=== PATIENT | female | born 1975 | race Caucasian/White ===

== ENCOUNTER 2016-06-28 19:16 | Emergency (ER) | payer OTHER ==
[~2016-06-28] VITALS: Ht 162.6 cm; Wt 54.0 kg
[2016-06-28 19:34] VITALS: Ht 162.6 cm; Wt 54.0 kg
[2016-06-28 20:53] LABS: URINE BLOOD (Dip) POC 2+ (NEGATIVE)
--- NOTE | 2016-06-28 22:30 | RADRPT ---
PROCEDURE: US Pelvis. CLINICAL INDICATION: Pelvic pain TECHNIQUE: Multiple sonographic images of the pelvis were obtained utilizing a transabdominal and endovaginal technique. The images were reviewed on a PACS workstation. COMPARISON: None. FINDINGS: The uterus is visualized and measures 11 x 7.2 x 8.4 cm in size. A hypoechoic mass in the fundus is seen measuring 6.4 x 5.2 x 5.3 cm in size and is consistent with a leiomyoma. The endometrial echo c omplex is mildly thickened and measures 12.9 mm. There is a mild amount of free fluid. A right ovari an simple cystic structure is seen measuring 1.6 x 1.4 x 1.7 cm in size and is consistent with a dom inant follicle. The remainder of the right ovary has a normal echotexture and measures 3.5 x 1.9 x 2 .4 cm. The left ovary is not visualized.. No adnexal masses are noted. IMPRESSION: 1. Large fundal mass consistent with a leiomyoma. 2. Small amount of free fluid in the pelvis with a mildly thickened endometrial lining which may be physiologic. RPTAT: HPNM Physician Vielka Date Time Electronically viewed and signed by Physician Vielka on 06/28/2016 22:29 /
[2016-06-28] MEDS ORDERED: IBUP-1542 PO (22:51)
--- NOTE | 2016-06-28 22:58 | ERD ---
ER Documentation Chief Complaint Date/Time DATE: 06/28/16 TIME: 22:53 Chief Complaint lower abd pain/frequent urination x 2 weeks HPI 40-year-old female complaining of suprapubic pain 2 weeks. Pain comes and goes , and sharp. Patient also reports frequent urination for the past 2 weeks, but denies dysuria. LMP 06/14/2016. Denies fever or chills. Denies flank pain. ROS All systems reviewed and are negative except as per history of present illness. Medications Home Meds Active Scripts Ibuprofen* (Motrin*) 600 Mg Tab, 600 MG PO Q6H Y for PAIN AND OR ELEVATED TEMP, #30 TAB Prov:ASHOK JORDAN. MARKETING ROTATION ASSOCIATE 06/28/16 Allergies Allergies: Coded Allergies: No Known Drug Allergies (Verified Allergy, Unknown, 06/28/16) PMhx/Soc Medical and Surgical Hx: pt denies Medical Hx, pt denies Surgical Hx Hx Alcohol Use: No Hx Substance Use: No Hx Tobacco Use: No Smoking Status: Never smoker Physical Exam Vitals Vital Signs Date Time Temp Pulse Resp B/P Pulse Ox O2 Delivery O2 Flow Rate FiO2 06/28/16 19:34 98.3 80 20 127/74 99 Physical Exam General impression: Well-developed, well-nourished. Alert, oriented, in no acute distress Head: Normocephalic, atraumatic. Eyes: PERRL, EOM normal. Conjunctiva not injected. Respiration: Normal respiratory effort. Lungs clear to auscultate bilaterally. No wheezes, rales or rhonchi. Cardiovascular: Regular rate and rhythm. No murmurs or extra heart sounds. Abdomen: Abdomen normal to inspection. Suprapubic tenderness, no other tenderness. No masses or organomegaly. Bowel sounds normal. Back: Normal to inspection. No midline spine tenderness. No CVA tenderness. Neuro: Mental status normal, speech normal. FINANCIAL COACH grossly intact. Skin: Normal turgor. No rash or lesions. Psych: Normal mood and affect. Results 24 hrs Laboratory Tests Test 06/28/16 20:55 Bedside Urine Blood 2+ Bedside Urine Glucose (UA) Negative Bedside Urine Ketones (LAB) Negative Bedside Urine Leukocyte Esterase (L Negative Bedside Urine Nitrite (LAB) Negative Bedside Urine Protein (LAB) Negative Bedside Urine pH (LAB) 6.0 Current Medications Medications (Trade) Dose Ordered Sig/Dawn Route PRN Reason Start Time Stop Time Status Last Admin Dose Admin Ibuprofen (Motrin) 600 mg ONCE ONCE PO 06/28/16 23:00 06/28/16 23:01 Procedures/MDM Well-appearing 40-year-old female presented to ED with suprapubic pain 2 weeks. Ibuprofen given to the patient in the ED for pain. Urine is negative. Urine dip has 2+ blood, otherwise negative. She does not have UTI. Pelvic ultrasound showed a large fundal mass consistent with a leiomyoma measuring 6.4 x 5.2 x 5.3 cm in size. Likely this is the cause of her pain. Patient appears well, stable for discharge and outpatient management. Medical decision making shared with patient and family. Education provided to patient and family. Patient and family expressed understanding of the plan. Medications on discharge: Ibuprofen. Follow-up: Motion Picture Actor or primary care provider in 2-3 days or return to ED if worse. Departure Diagnosis: Primary Impression: Fibroid, uterine Uterine leiomyoma location: intramural Qualified Code: D25.1 - Intramural leiomyoma of uterus Condition: Stable Patient Instructions: What Are Fibroids? Referrals: [facility] YOU HAVE RECEIVED A MEDICAL SCREENING EXAM AND THE RESULTS INDICATE THAT YOU DO NOT HAVE A CONDITION THAT REQUIRES URGENT TREATMENT IN THE EMERGENCY DEPARTMENT. FURTHER EVALUATION AND TREATMENT OF YOUR CONDITION CAN WAIT UNTIL YOU ARE SEEN IN YOUR DOCTORS OFFICE WITHIN THE NEXT 1-2 DAYS. IT IS YOUR RESPONSIBILITY TO MAKE AN APPOINTMENT FOR FOLOW-UP CARE. IF YOU HAVE A PRIMARY DOCTOR --you should call your primary doctor and schedule an appointment IF YOU DO NOT HAVE A PRIMARY DOCTOR YOU CAN CALL OUR PHYSICIAN REFERRAL HOTLINE AT IF YOU CAN NOT AFFORD TO SEE A PHYSICIAN YOU CAN CHOSE FROM THE FOLLOWING [facility] [address] [facility]. [facility] [address] [facility]. [facility] [address] [facility]. [facility] [address] [facility]. [facility] [address] [facility]. [facility]. [address] [place] [employer] DEPOSIT ENTRY [place] [address] [facility] [address] [place] [address] OFFICE FAX [facility] [place] [address] [place] [address] [address]. RAZA, [place] [address] [place] [address] DR KIDD, [facility] [address], [address], [facility] [address] [address] [facility] [address] [place] [address] [facility] [address] [place] [address] [address] [facility] [address] [address] HOOD, MELISSA [address] [place] [address] [address]LEA, [place] [address] [facility]. [address], [place] [address] [address] CALDERON, [facility] [address] [place] [address] Additional Instructions: Specialist:Usted tiene lyubov condicin mdica que requiere que joshua a un especialista dentro de los prximos 1-2 reyes.POR FAVOR,CON ACUNA SEGUIMIENTO DE PRIMARIA PHSICIAN refferal. SI USTED NO TIENE UN MDICO GENERAL Y / O USTED NO PUEDE PAGAR keerthi a un mdico,los siguientes parsons RECURSOS sido suministrado a usted. ES ACUNA RESPONSABILIDAD PARA SER VISTOS POR EL ESPECIALISTA: ASHOK JORDAN NP Jun 28, 2016 22:58
[2016-06-28] MEDS ORDERED: IBUPROFEN 600 MG TAB PO ONE (23:00)
[2016-06-28 23:51] VITALS: BP 123/74; PULSE 82; RESP 16; TEMP 98.6
== END 2016-06-28 23:56 | disposition home or self-care (01) ==
LOC: FTE 19:16
DX: D25.1 Intramural leiomyoma of uterus (principal); R10.2 Pelvic and perineal pain
CPT/HCPCS: 76830; 76856; 81003; Z7502; Z7610

== ENCOUNTER 2016-07-27 21:44 | Emergency (ER) | payer OTHER ==
[~2016-07-27] VITALS: Ht 162.6 cm; Wt 53.5 kg
[~2016-07-27 21:44] MED LIST: IBUP-1542 PO
[2016-07-27 21:47] VITALS: Ht 162.6 cm; Wt 53.5 kg
[2016-07-27] MEDS ORDERED: ONDANSETRON (ODT) 4 MG TAB ODT STA (23:01)
--- NOTE | 2016-07-27 23:06 | ERD ---
ER Documentation Chief Complaint Date/Time DATE: 07/27/16 TIME: 23:05 Chief Complaint epigastric pain since yesterday HPI 40-year-old male presents to emergency department for complaints of epigastric pain started yesterday. Patient describes the pain as sharp pain, 8/10 scale, accompanied with nausea. Worse after eating. Patient was given medication this morning, omeprazole, has not filled the medication. Patient denies any fever or chills. Patient denies any chest pain. Patient denies any acid reflux. Patient denies any dyspnea on exertion or dyspnea on lying down. Patient denies any palpitations or irregular heartbeat. Patient denies any vomiting. Patient denies any diarrhea or constipation. ROS All systems reviewed and are negative except as per history of present illness. Medications Home Meds Active Scripts Ondansetron (Ondansetron Odt) 4 Mg Tab.rapdis, 4 MG PO Q8H Y for NAUSEA AND/OR VOMITING, #30 TAB Prov:MARLA POSADA DIRECTOR BEHAVIORAL HEALTH 07/28/16 Magaldrate/Simethicone* (Mylanta*) 355 Ml Susp, 30 ML PO QID Y for GASTROINTESTINAL UPSET, #1 BOTTLE Prov:MARLA POSADA DIRECTOR BEHAVIORAL HEALTH 07/28/16 Hydrocodone/Acetaminophen ([place] 5-325 Tablet) 1 Each Tablet, 1 TAB PO Q6H Y for PAIN, #20 TAB Prov:MARLA POSADA DIRECTOR BEHAVIORAL HEALTH 07/28/16 Ibuprofen* (Motrin*) 600 Mg Tab, 600 MG PO Q6H Y for PAIN AND OR ELEVATED TEMP, #30 TAB Prov:ASHOK JORDAN DIRECTOR BEHAVIORAL HEALTH 06/28/16 Allergies Allergies: Coded Allergies: No Known Drug Allergies (Verified Allergy, Unknown, 07/27/16) PMhx/Soc Medical and Surgical Hx: pt denies Medical Hx, pt denies Surgical Hx Hx Alcohol Use: No Hx Substance Use: No Hx Tobacco Use: No FmHx Family History: No coronary disease, No diabetes, No other Physical Exam Vitals Vital Signs Date Time Temp Pulse Resp B/P Pulse Ox O2 Delivery O2 Flow Rate FiO2 07/27/16 21:47 98.5 100 20 138/76 100 Physical Exam GENERAL: The patient is well developed and appropriate for usual state of health, in no apparent distress. CHEST: Clear to auscultation bilaterally. There are no rales, wheezes or rhonchi. HEART: Regular rate and rhythm. No murmurs, clicks, rubs or gallops. No S3 or S4. ABDOMEN: Soft, nontender and nondistended. Good bowel sounds. No rebound or guarding. No gross peritonitis. No gross organomegaly or masses. No Avalos sign or McBurney point tenderness. BACK: No midline or flank tenderness. EXTREMITIES: Equal pulses bilaterally. There is no peripheral clubbing, cyanosis or edema. No focal swelling or erythema. Full range of motion. Grossly neurovascularly intact. NEURO: Alert and oriented. Cranial nerves 2-12 intact. Motor strength in all 4 extremities with 5/5 strength. Sensation grossly intact. Normal speech and gait. SKIN: There is no apparent rash or petechia. The skin is warm and dry. HEMATOLOGIC AND LYMPHATIC: There is no evidence of excessive bruising or lymphedema. No gross cervical, axillary, or inguinal lymphadenopathy. Result Diagram: 07/27/162 07/27/16 2312 Results 24 hrs Laboratory Tests Test 07/27/16 23:12 07/28/16 00:13 Alanine Aminotransferase (ALT/SGPT) 27IU/L Albumin 4.8g/dl Albumin/Globulin Ratio 1.41 Alkaline Phosphatase 63IU/L Anion Gap 20 Aspartate Amino Transf (AST/SGOT) 24IU/L Basophils # 0.010^3/ul Basophils % 0.3% Blood Urea Nitrogen 16mg/dl Calcium Level 9.8mg/dl Carbon Dioxide Level 24mmol/L Chloride Level 98mmol/L Creatinine 0.90mg/dl Direct Bilirubin 0.00mg/dl Eosinophils # 0.010^3/ul Eosinophils % 0.3% Globulin 3.40g/dl Glucose Level 97mg/dl Hematocrit 34.8% Hemoglobin 11.6g/dl Indirect Bilirubin 0.0mg/dl Lipase 77U/L Lymphocytes # 2.610^3/ul Lymphocytes % 24.2% Mean Corpuscular Hemoglobin 28.9pg Mean Corpuscular Hemoglobin Concent 33.3g/dl Mean Corpuscular Volume 86.8fl Mean Platelet Volume 8.6fl Monocytes # 0.710^3/ul Monocytes % 6.4% Neutrophils # 7.210^3/ul Neutrophils % 68.6% Nucleated Red Blood Cells # 0.010^3/ul Nucleated Red Blood Cells % 0.0/100WBC Platelet Count 84712^3/UL Potassium Level 4.1mmol/L Red Blood Count 4.0110^6/ul Red Cell Distribution Width 13.2% Sodium Level 138mmol/L Total Bilirubin 0.0mg/dl Total Protein 8.2g/dl White Blood Count 10.510^3/ul Urine Bacteria MODERATE Urine Bilirubin NEGATIVE Urine Clarity CLEAR Urine Color LT. YELLOW Urine Glucose NEGATIVE% Urine Hemoglobin TRACE Urine Ketones NEGATIVE Urine Leukocyte Esterase NEGATIVE Urine Microscopic RBC 0-2/HPF Urine Microscopic WBC 0-2/HPF Urine Nitrite NEGATIVE Urine Specific Healy 1.010 Urine Squamous Epithelial Cells FEW Urine Total Protein NEGATIVE Urine Urobilinogen 0.2 E.U./dL Urine pH 5.5 Current Medications Medications (Trade) Dose Ordered Sig/Dawn Route PRN Reason Start Time Stop Time Status Last Admin Dose Admin Miscellaneous Medication (Gi Cocktail (2)) 40 ml ONCE ONCE PO 07/27/16 23:30 07/27/16 23:31 DC 07/28/16 00:08 Acetaminophen/ Hydrocodone Bitart ([place] (5/325)) 1 tab ONCE ONCE PO 07/27/16 23:30 07/27/16 23:31 DC 07/28/16 00:08 Ondansetron HCl (Zofran Odt) 4 mg ONCE STAT ODT 07/27/16 23:01 07/27/16 23:03 DC 07/28/16 00:08 Patient was given medication for pain here in emergency department, after treatment, patient verbalized feeling much better. Patient's pain is improved.Patient was given Zofran here in the emergency department. After treatment, patient was able to tolerate po fluids here in the emergency department without any vomiting. There is no signs and symptoms of dehydration. EKG was done, read by me and is normal sinus rhythm at a rate of 79, right axis deviation, there is no ST changes or changes in the EKG that indicates any cardiac emergencies at this time. Patient's EKG was also reviewed by . Impression: no acute findings on EKG PROCEDURE: Right upper quadrant abdominal ultrasound. CLINICAL INDICATION: Abdominal pain TECHNIQUE: Carvalho scale and color doppler ultrasound images of the right upper quadrant. COMPARISON: None FINDINGS: Pancreas: Visualized portions appear of normal echogenicity, no focal lesions. Liver: Morphology: Normal in size and contour. Echogenicity: Normal. Focal lesions: None. Main portal vein: Patent with hepatopetal flow. Biliary System: Normal appearing gallbladder wall. No gallstones seen. No intrahepatic biliary dilatation. Common bile duct measures 2.7 mm in maximal dimension. Kidneys: Right 0.2 cm in length. Right renal cortical thickness is preserved. Normal echogenicity. No hydronephrosis. A few nonshadowing small echogenic foci are noted within the right kidney measuring up to 3 mm. No definite shadowing gallstones are seen. No focal lesions. No free fluid identified. IMPRESSION: Normal gallbladder without gallstones. A few small nonshadowing echogenic foci are present within the right kidney measuring less than 3 mm. These may represent small nonshadowing nonobstructive renal calculi or possibly artifactual. CT scan of the abdomen and pelvis can be obtained for further evaluation. RPTAT: AADD .Gómez Emery MD, Date Time Electronically viewed and signed by .Gómez Emery MD, on 07/27/2016 23:51 .B/ CC: MARLA POSADA NP PROCEDURE: CHEST - 1 VIEW CLINICAL INDICATION: 40-year-old female with chest/abdominal pain. TECHNIQUE: A single frontal AP semi-erect view of the chest was performed portably. The images were reviewed on a PACS workstation. COMPARISON: None. FINDINGS: The cardiomediastinal silhouette has a normal appearance. There is no evidence for an infiltrate. There is no evidence for congestive heart failure. There is no evidence for pneumothorax. The osseous structures are intact. IMPRESSION: No evidence for active cardiopulmonary disease. .Gary Vyas MD, MD Date Time Electronically viewed and signed by .Gary Vyas MD, MD on 07/28/2016 00:48 .M/ CC: MARLA POSADA NP Procedures/MDM Medical Decision Making: Patient symptoms most likely consistent with gastritis. There is low suspicion for abdominal emergencies at this time. Patients abdominal exam is normal at this time. Patients radiology exam does not show any abdominal emergencies at this time. There is low suspicion for appendicitis, cholecystitis, abdominal aortic aneurysms or peritonitis at this time. There is low suspicion for sepsis. Patient appears well and is hemodynamically stable. No suspicion for acute coronary syndrome, EKG is normal. Disposition: Home. Condition: Stable Prescription : Mylanta, continue omeprazole, [place], Zofran Advised to take medications as prescribed. Patient is advised to rest, increase fluid intake and do brat diet for next 1-2 days and progress as tolerated, avoid spicy food. Patient is advised that if symptoms are worse, severe abdominal pain, uncontrolled vomiting, high fever, severe flank pain, worst signs and symptoms, to return to the emergency department immediately. Otherwise, patient can follow up with primary care doctor in 5-7 days. Departure Diagnosis: Primary Impression: Epigastric pain Condition: Stable Patient Instructions: Epigastric Pain (Uncertain Cause) Additional Instructions: Advised to take medications as prescribed. Patient is advised to rest, increase fluid intake and do brat diet for next 1-2 days and progress as tolerated, avoid spicy food. Patient is advised that if symptoms are worse, severe abdominal pain, uncontrolled vomiting, high fever, severe flank pain, worst signs and symptoms, to return to the emergency department immediately. Otherwise, patient can follow up with primary care doctor in 5-7 days. MARLA POSADA NP Jul 27, 2016 23:06
[2016-07-27 23:21] LABS: ADD SCAN DIFF NO
[2016-07-27 23:27] LABS: BASOPHILS % 0.3 % (0.0-2.0); EOSINOPHILS % 0.3 % (0.0-7.0); HEMATOCRIT 34.8 % (37.0-47.0); HEMOGLOBIN 11.6 g/dl (12.0-16.0); LYMPHOCYTES # 2.6 10^3/ul (0.8-2.9); LYMPHOCYTES % 24.2 % (15.0-51.0); MEAN CORPUSCULAR HEMOGLOBIN 28.9 pg (29.0-33.0); MEAN CORPUSCULAR HGB CONC 33.3 g/dl (32.0-37.0); MEAN CORPUSCULAR VOLUME 86.8 fl (82.0-101.0); MEAN PLATELET VOLUME 8.6 fl (7.4-10.4); MONOCYTE # 0.7 10^3/ul (0.3-0.9); MONOCYTES % 6.4 % (0.0-11.0); NEUTROPHIL # 7.2 10^3/ul (1.6-7.5); NEUTROPHILS % 68.6 % (39.0-77.0); PLATELET COUNT 406 10^3/UL (140-415); RED BLOOD COUNT 4.01 10^6/ul (4.20-5.40); RED CELL DISTRIBUTION WIDTH 13.2 % (11.5-14.5); WHITE BLOOD COUNT 10.5 10^3/ul (4.8-10.8)
[2016-07-27] MEDS ORDERED: LIDOCAINE/MYLANTA 40 ML BTL PO ONE (23:30)
[2016-07-27] MEDS ORDERED: HYDROCODONE/APAP (5/325) TAB PO ONE (23:30)
[2016-07-27 23:35] LABS: ALBUMIN 4.8 g/dl (3.3-4.9); POTASSIUM 4.1 mmol/L (3.5-5.1)
[2016-07-27 23:38] LABS: ALBUMIN/GLOBULIN RATIO 1.41; CALCIUM 9.8 mg/dl (8.4-10.2); CREATININE 0.9 mg/dl (0.44-1.00); TOTAL PROTEIN 8.2 g/dl (6.1-8.1)
--- NOTE | 2016-07-27 23:51 | RADRPT ---
PROCEDURE: Right upper quadrant abdominal ultrasound. CLINICAL INDICATION: Abdominal pain TECHNIQUE: Carvalho scale and color doppler ultrasound images of the right upper quadrant. COMPARISON: None FINDINGS: Pancreas: Visualized portions appear of normal echogenicity, no focal lesions. Liver: Morphology: Normal in size and contour. Echogenicity: Normal. Focal lesions: None. Main portal vein: Patent with hepatopetal flow. Biliary System: Normal appearing gallbladder wall. No gallstones seen. No intrahepatic biliary dilatation. Common bile duct measures 2.7 mm in maximal dimension. Kidneys: Right 0.2 cm in length. Right renal cortical thickness is preserved. Normal echogenicity. No hydronephrosis. A few nonshadowing small echogenic foci are noted within the right kidney measuring up to 3 mm. No definite shadowing gallstones are seen. No focal lesions. No free fluid identified. IMPRESSION: Normal gallbladder without gallstones. A few small nonshadowing echogenic foci are present within the right kidney measuring less than 3 mm . These may represent small nonshadowing nonobstructive renal calculi or possibly artifactual. CT scan of the abdomen and pelvis can be obtained for further evaluation. RPTAT: AADD .Gómez Emery MD, MD Date Time Electronically viewed and signed by .Gómez Emery MD, on 07/27/2016 23:51 .B/
--- NOTE | 2016-07-28 00:48 | RADRPT ---
PROCEDURE: CHEST - 1 VIEW CLINICAL INDICATION: 40-year-old female with chest/abdominal pain. TECHNIQUE: A single frontal AP semi-erect view of the chest was performed portably. The images we re reviewed on a PACS workstation. COMPARISON: None. FINDINGS: The cardiomediastinal silhouette has a normal appearance. There is no evidence for an infiltrate. There is no evidence for congestive heart failure. There is no evidence for pneumothorax. The osseou s structures are intact. IMPRESSION: No evidence for active cardiopulmonary disease. .Gary Vyas MD, MD Date Time Electronically viewed and signed by .Gary Vyas MD, on 07/28/2016 00:48 .M/
[2016-07-28 00:51] LABS: ADD UMIC YES; URINE BILIRUBIN (Dip) NEGATIVE (NEGATIVE); URINE BLOOD (Dip) TRACE (NEGATIVE); URINE COLOR LT. YELLOW (YELLOW); URINE GLUCOSE (Dip) NEGATIVE (NEGATIVE); URINE KETONES (Dip) NEGATIVE (NEGATIVE); URINE LEUKOCYTE ESTERASE (Dip) NEGATIVE (NEGATIVE); URINE NITRITE (Dip) NEGATIVE (NEGATIVE); URINE TOTAL PROTEIN (Dip) NEGATIVE (NEGATIVE); URINE UROBILINOGEN (Dip) 0.2 E.U./dL (0.1-1.0)
[2016-07-28] MEDS ORDERED: MAG-19 PO (01:04)
[2016-07-28] MEDS ORDERED: HYDR-906 PO (01:04)
[2016-07-28] MEDS ORDERED: ONDA4TAB14 PO (01:04)
[2016-07-28 01:07] LABS: SQUAMOUS EPITHELIAL CELL,UR FEW; URINE RBCS 0-2 /HPF (0)
[2016-07-28 01:08] LABS: BACTERIA,URINE MODERATE
[2016-07-28 01:19] VITALS: BP 126/68; PULSE 69; TEMP 98.5
== END 2016-07-28 01:50 | disposition home or self-care (01) ==
LOC: FTE 21:44
DX: R10.13 Epigastric pain (principal); R11.0 Nausea
CPT/HCPCS: 36415; 71010; 76705; 80053; 81001; 83690; 85025; Z7502; Z7610; 81003

== ENCOUNTER 2017-08-29 17:47 | Emergency (ER) | END 2017-08-29 22:44 | disposition home or self-care (01) ==

== ENCOUNTER 2017-09-17 08:41 | Emergency (ER) | END 2017-09-17 10:57 | disposition home or self-care (01) ==

== ENCOUNTER 2018-02-19 18:15 | Emergency (ER) | END 2018-02-19 20:54 | disposition home or self-care (01) ==

== ENCOUNTER 2018-03-08 13:38 | Emergency (ER) | END 2018-03-08 15:43 | disposition home or self-care (01) ==